=== PATIENT | female | born 1945 | race Caucasian/White ===

== ENCOUNTER → 2020-01-02 | Outpatient (REF) | payer MEDICARE | LOC: M LAB REF 15:38 | PROVIDERS: ATTEND Otolaryngology | DX: D11.0 Benign neoplasm of parotid gland (principal) ==

== ENCOUNTER → 2020-05-24 | Outpatient (CLI) | payer MEDICARE ==
[~2020-05-24] MED LIST: ALLO10TA PO; ASPI-1 PO; ATOR1TAB19 PO; CYAN500T8 PO; D31000TA2 PO; FISH1000 PO; FURO20TA2 PO; LEVO25TA5 PO; LISI-538 PO; METO1TAB7 PO; MULTCAP PO; OCUVTAB4 PO; RALO1TAB PO; VITA-243 PO
== END ==
LOC: M LABSMTC 11:44
PROVIDERS: ATTEND Anesthesiology
DX: Z01.812 Encounter for preprocedural laboratory examination (principal); Z20.828 Contact with and (suspected) exposure to other viral communicable diseases
CPT/HCPCS: C9803; U0003

== ENCOUNTER → 2020-05-24 | Outpatient (CLI) | payer MEDICARE ==
--- NOTE | 2020-05-26 09:21 | ECGEPIP ---
[facility] Test Date: 2020-05-24 Pat Name: SKYE AWAD Department: Room: - Gender: Female [employer]let [employer] Inserter: ELLIE : 1945 Requested By: Bhavik David Order Number: [id number] Reading MD: Hilario Arevalo Measurements Intervals [place] Rate: 87 P: 61 ME: 170 QRS: 2 QRSD: 84 T: 31 QT: 354 QTc: 427 Interpretive Statements Normal sinus rhythm Nonspecific T wave abnormality Comparison tracing not on file Electronically Signed on 05-26-2020 9:20:40 EDT by Hilario Arevalo
== END ==
LOC: M EKG 11:13
PROVIDERS: ATTEND Anesthesiology
DX: Z01.812 Encounter for preprocedural laboratory examination (principal); Z20.828 Contact with and (suspected) exposure to other viral communicable diseases

== ENCOUNTER 2020-05-29 10:37 | Day surgery (SDC) | payer MEDICARE ==
[~2020-05-29] VITALS: Ht 162.6 cm; Wt 108.4 kg
[~2020-05-29 10:37] MED LIST changes: +LR 1,000 ML IV ONE
[2020-05-29] MEDS ORDERED: ROCURONIUM BROMIDE 50 MG/5 ML VIAL As Ordered ONE (12:26)
[2020-05-29] MEDS ORDERED: fentaNYL 100 MCG/2 ML INJECTION (J3010) As Ordered ONE ×2 (12:26→15:16)
[2020-05-29] MEDS ORDERED: LIDOCAINE 2% 100MG/5ML SDV (FOR ANES.) As Ordered ONE (12:26)
[2020-05-29] MEDS ORDERED: MIDAZOLAM INJ 2MG/2ML VIAL (J2250 PER 1MG) As Ordered ONE (12:26)
[2020-05-29] MEDS ORDERED: propofoL 200 MG/20 ML VIAL As Ordered ONE (12:26)
[2020-05-29] MEDS ORDERED: LIDOCAINE W/EPINEPHRINE 1% 20ML VIAL As Ordered ONE (14:29)
[2020-05-29] MEDS ORDERED: BACITRACIN OINTMENT 30GM TUBE As Ordered ONE (14:29)
[2020-05-29] MEDS ORDERED: PHENYLephrine HCL 500 MCG/5 ML (100MCG/ML) SYRINGE (J2370) As Ordered ONE ×2 (15:04→15:28)
[2020-05-29] MEDS ORDERED: dexameTHASONE 4 MG/ML 1ML VIAL (J1100 PER 1MG) As Ordered ONE (15:04)
[2020-05-29] MEDS ORDERED: ONDANSETRON 4MG/2ML VIAL As Ordered ONE (15:20)
[2020-05-29] MEDS ORDERED: NEOSTIGMINE 10MG/10ML VIAL (J2710 PER 0.5MG) As Ordered ONE (15:21)
[2020-05-29] MEDS ORDERED: GLYCOPYRROLATE INJ 0.2 MG/ML 2 ML VIAL As Ordered ONE (15:21)
[2020-05-29] MEDS ORDERED: ePHEDrine SULFATE 25 MG/5 ML(5MG/ML) SYRINGE As Ordered ONE (15:26)
[2020-05-29] MEDS ORDERED: ACETAMINOPH W/CODEINE #3 TAB UD PO PRN (16:45)
[2020-05-29] MEDS ORDERED: oxyCODONE 5MG TAB PO PRN (16:45)
[2020-05-29] MEDS ORDERED: LR 1,000 ML IV SCH ×2 (16:45)
[2020-05-29] MEDS ORDERED: HYDROMORPHONE HCL 0.5 MG/ 0.5 ML SYRINGE (J1170 PER 1) IV PRN (16:45)
[2020-05-29] MEDS ORDERED: fentaNYL 100 MCG/2 ML INJECTION (J3010) IV PRN (16:45)
[2020-05-29] MEDS ORDERED: ONDANSETRON 4MG/2ML VIAL IV PRN (16:45)
[2020-05-29 18:15] VITALS: BP 131/69
--- NOTE | 2020-06-05 14:49 | RO ---
DATE OF OPERATION: 05/29/20 PREOPERATIVE DIAGNOSIS: Right parotid tumor. POSTOPERATIVE DIAGNOSIS: Right parotid tumor. OPERATIVE PROCEDURE: Right superficial parotidectomy with nerve preservation. SURGEON: Dr. Javi Schmidt FINDINGS: There was tumor anterior to the parotid gland on the right side. PROCEDURE: Under general anesthesia with the patient intubated the patient was prepped and draped in usual manner. I did use the nerve monitor during the procedure. The electrodes were hooked up. The patient was prepped and draped in usual manner. I mapped out the incision, infiltrated with Lidocaine. I divided skin and subcutaneous tissues. I dissected tissues off the parotid. Anteriorly the tumor was attached to the parotid. I used blunt dissection and dissected around the tumor. In doing so I found two branches of the facial nerve which were overlapping the tumor. I dissected these branches free. Using blunt dissection I dissected the tumor free making sure I had a good cuff of normal tissue after I had freed up the nerve branches. Bleeding was controlled with bipolar cautery. I delivered the parotid from the wound. I irrigated the area to see if there was any bleeding. The vessels seen were cauterized with bipolar cautery. I did stimulate the facial nerve branches to the upper lip and the nasal area and they were intact. There was rare bleeding, probably less than 30 mL estimated blood loss. Through separate stab wound I put in GINGER drain and then sutured it in. I closed the wound with 4-0 Vicryl and 4-0 Prolene. The patient tolerated the procedure well and was extubated and transferred to the recovery room in excellent condition. ADDENDUM: CIGAR PACKER AND PICKER: Dr. Maradiaga who held retractors, helped with the dissection and closure at the end of the procedure. [facility]Hal
== END 2020-05-29 18:21 | disposition home or self-care (01) ==
LOC: M SDC 10:37
PROVIDERS: ATTEND Otolaryngology
DX: D11.0 Benign neoplasm of parotid gland (principal); I10 Essential (primary) hypertension; E78.5 Hyperlipidemia, unspecified; E03.9 Hypothyroidism, unspecified; G47.30 Sleep apnea, unspecified; Z85.3 Personal history of malignant neoplasm of breast; Z92.21 Personal history of antineoplastic chemotherapy; Z79.82 Long term (current) use of aspirin; Z79.899 Other long term (current) drug therapy
CPT/HCPCS: 42415; 88305; J1100; J2250; J2370; J2405; J2710; J3010